=== PATIENT | male | born 1950 | race Caucasian/White ===

== ENCOUNTER 2020-08-25 14:46 | Emergency (ER) | payer MEDICARE, BC ==
[~2020-08-25] VITALS: Ht 172.7 cm; Wt 68.0 kg
[2020-08-25] MEDS ORDERED: MORPHINE SULFATE 4 MG/1 ML DISP.SYRIN IV ONE (15:00)
[2020-08-25] MEDS ORDERED: ONDANSETRON 4 MG/2 ML VIAL IV ONE ×2 (15:00→18:30)
[2020-08-25] MEDS ORDERED: ESCI5TAB PO (15:06)
--- NOTE | 2020-08-25 15:15 | NUR ---
Pt refused Morphine and Zofran. Family at bedside.
[2020-08-25 15:25] LABS: BASOPHILS # (AUTO) 0.1 K/uL (0.0-8.0); BASOPHILS % (AUTO) 0.5 % (0.0-2.0); EOSINOPHILS % (AUTO) 0.4 % (0.0-7.0); HEMATOCRIT 41.8 % (36.7-47.1); LYMPHOCYTES # (AUTO) 0.8 K/uL (20.0-40.0); LYMPHOCYTES % (AUTO) 6.7 % (20.5-51.5); MEAN CORPUSCULAR HEMOGLOBIN 31.7 uug (23.8-33.4); MEAN CORPUSCULAR HGB CONC 34 g/dL (32.5-36.3); MEAN CORPUSCULAR VOLUME 94.6 fL (73.0-96.2); MONOCYTES # (AUTO) 0.5 K/uL (2.0-10.0); MONOCYTES % (AUTO) 4.5 % (0.0-11.0); NEUTROPHILS % (AUTO) 87.9 % (38.5-71.5); PLATELET COUNT (AUTO) 171 K/uL (152-348); RED BLOOD CELL COUNT(AUTO) 4.42 MIL/uL (4.06-5.63); WHITE BLOOD COUNT (AUTO) 11.3 K/uL (3.6-10.2)
[2020-08-25 15:33] LABS: CARBON DIOXIDE 24 mmol/L (21-32); CHLORIDE 100 mmol/L (98-107); CREATININE 1.3 mg/dL (0.6-1.3); GLUCOSE 141 mg/dL (74-106); POTASSIUM 3.5 mmol/L (3.5-5.1); UREA NITROGEN, BLOOD 12 mg/dL (7-18)
[2020-08-25 15:46] LABS: ALANINE AMINOTRANSFERASE 22 U/L (16-63); ALKALINE PHOSPHATASE 53 U/L (50-136); ASPARTATE AMINOTRANSFERASE 19 U/L (15-37); BILIRUBIN,DIRECT 0.2 mg/dL (0.0-0.2); BILIRUBIN,TOTAL 0.9 mg/dL (0.2-1.0)
--- NOTE | 2020-08-25 15:50 | NUR ---
Pt resting with NAD noted. Family remains at bedside. Pt still refused Morphine/Zofran.
[2020-08-25] MEDS ORDERED: MORPHINE SULFATE 4 MG/1 ML DISP.SYRIN ONE (15:57)
[2020-08-25] MEDS ORDERED: ONDANSETRON 4 MG/2 ML VIAL ONE (15:57)
[2020-08-25] MEDS ORDERED: SWABABLE VALVE TRANSFER SET EA MC ONE (16:17)
[2020-08-25] MEDS ORDERED: IV NORMAL SALINE 250 ML IV ONE (16:17)
[2020-08-25] MEDS ORDERED: IOHEXOL 350 100 ML INFUS..BTL ONE (16:17)
--- NOTE | 2020-08-25 17:30 | NUR ---
Per Dr. Martinez pt to be admitted to tele. Called tele floor, no beds available at this time. Pt resting with NAD noted.
[2020-08-25] MEDS ORDERED: IBUPROFEN 600 MG TABLET PO ONE (17:47)
[2020-08-25] MEDS ORDERED: ACETAMINOPHEN 325 MG TABLET PO ONE (17:53)
[2020-08-25] MEDS ORDERED: ACETAMINOPHEN 325 MG TABLET ONE (17:56)
[2020-08-25] MEDS ORDERED: IV NORMAL SALINE 1000 ML BAG IV ONE (18:30)
--- NOTE | 2020-08-25 20:18 | NUR ---
Called [facility] and spoke to Jodi. Will fax facesheet and summary report to .
[2020-08-25] MEDS ORDERED: levETIRAcetam IV 1,000 MG in IV DEXTROSE 5% 100 ML IV ONE (21:00)
--- NOTE | 2020-08-25 21:21 | NUR ---
Jodi from transfer center called back with transfer info. Patient will be going [facility] 8S30.
[2020-08-25] MEDS ORDERED: levETIRAcetam 500 MG/5 ML VIAL IV ONE (21:24)
--- NOTE | 2020-08-25 21:24 | NUR ---
Called [facility] to transfer [facility] but no ALS unit available at this time.
--- NOTE | 2020-08-25 21:33 | NUR ---
Called [facility] ETA is [phone].
--- NOTE | 2020-08-25 23:58 | NUR ---
Accepting MD at [facility] is Dr Lo.
--- NOTE | 2020-08-26 00:10 | NUR ---
Patient transferred this time by [facility] ambulance [facility] to [facility] Room 8S32. patient is stable at this time, A/Ox4 VS stable, 99% on room air, no signs of distress. Hand off report given to [facility] nurse Gisselle.
[2020-08-26] MEDS ORDERED: Medication Not On Formulary EA (Escitalopram Oxalate (Lexapro) 1 TAB) PO SCH (09:00)
== END 2020-08-26 00:15 | disposition short-term general hospital (02) ==
LOC: ER 14:46
DX: S22.32XA Fracture of one rib, left side, initial encounter for closed fracture (principal); S27.0XXA Traumatic pneumothorax, initial encounter; W18.30XA Fall on same level, unspecified, initial encounter; Y92.89 Other specified places as the place of occurrence of the external cause; T79.7XXA Traumatic subcutaneous emphysema, initial encounter; F32.9 Major depressive disorder, single episode, unspecified; R79.1 Abnormal coagulation profile; R07.89 Other chest pain; S06.6X9A Traumatic subarachnoid hemorrhage with loss of consciousness of unspecified duration, initial encounter; R40.2142 Coma scale, eyes open, spontaneous, at arrival to emergency department; R40.2362 Coma scale, best motor response, obeys commands, at arrival to emergency department; R40.2252 Coma scale, best verbal response, oriented, at arrival to emergency department; M54.2 Cervicalgia; Z20.822 Contact with and (suspected) exposure to COVID-19; M25.78 Osteophyte, vertebrae; M48.02 Spinal stenosis, cervical region
CPT/HCPCS: 36415; 70450; 70490; 71045; 71275; 72125; 74176; 80048; 80076; 83880; 84484; 85025; 85379; 85730; 87426; 93005; 93970; 96361; 96374; 96375; 99291; J1953; J2405; Q9967; 70030-TC; A4663; J2270; J7050